=== PATIENT | female | born 1925 | race Caucasian/White ===

== ENCOUNTER 2017-01-18 08:15 | Emergency (ER) | payer OTHER ==
[~2017-01-18] VITALS: Ht 154.9 cm; Wt 75.1 kg
[2017-01-18 08:18] VITALS: TEMP 36.8; Ht 154.9 cm; Wt 75.1 kg
[2017-01-18] MEDS ORDERED: SODIUM CHLORIDE 0.9% 500ML 500 ML IV STA (09:04)
[2017-01-18 09:13] LABS: BASO % 0.3 %; BASO ABS # 0.02 K/uL (0-0.2); COMPLETE YES; HEMATOCRIT 36.9 % (37-47); IG% 0.2 %; LYMPH % 17.8 %; LYMPH ABS # 1.05 K/uL (1.2-3.4); MEAN CELL VOLUME 97.6 fL (80-100); MEAN CORPUSCULAR HGB CONC 32.8 g/dl (32-36); MEAN PLATELET VOLUME 10.4 fL (7.4-10.4); MONO % 6.4 %; NEUT % 73.3 %; PLATELET COUNT 218 K/uL (130-400); RED BLOOD COUNT 3.78 M/uL (4.2-5.4); WHITE BLOOD COUNT 5.91 K/uL (4.8-10.8)
[2017-01-18 09:26] LABS: BUN/CREATININE RATIO 17.8 (10-20); CREATININE 1.2 mg/dl (0.60-1.20); MAGNESIUM 2.2 mg/dl (1.8-2.4); POTASSIUM 3.6 mmol/L (3.5-5.1)
--- NOTE | 2017-01-18 09:26 | DIAGNOSTIC IMAGING REPORT ---
SINGLE VIEW CHEST CLINICAL HISTORY: Generalized weakness. FINDINGS: An AP, portable, upright chest radiograph is obtained. No prior studies are available for comparison at the time of dictation. The examination is degraded by portable technique and patient rotation. The heart is mildly enlarged and there is atherosclerotic calcification of the thoracic aorta. The pulmonary vasculature is noncongested. Nonspecific interstitial thickening is observed. The lungs and pleural spaces are clear. No pneumothorax is seen. The skeletal structures are osteopenic. The bony thorax is grossly intact. IMPRESSION: Cardiomegaly with no active disease in the chest. Electronically signed by: Guille Rubio M.D. 01/18/2017 9:24 AM Dictated Date/Time: 01/18/2017 9:24 AM
[2017-01-18 09:29] LABS: URINE APPEARANCE CLEAR (CLEAR); URINE BILIRUBIN NEG (NEG); URINE COLOR YELLOW; URINE EPITHELIAL CELL AUTO 20-30 /lpf (0-5); URINE NITRITE NEG (NEG); URINE PH 5.5 (4.5-7.5); URINE SPECIFIC GRAVITY 1.021 (1.000-1.030); UROBILINOGEN NEG (NEG); ZZUR CULT IF INDIC CLEAN CATCH NO
[2017-01-18 09:36] LABS: ALB/GLOB RATIO 0.9 (0.9-2); THYROID STIMULATING HORMONE 3.75 uIu/ml (0.300-4.500)
[2017-01-18 09:37] LABS: MANUAL MICROSCOPIC REQUIRED? NO; REVIEW REQ? NO
[2017-01-18] MEDS ORDERED: AMLO2.5T PO (09:38)
[2017-01-18] MEDS ORDERED: [UNRECOGNIZED DRUG - CODE] PO (09:38)
[2017-01-18] MEDS ORDERED: LABE100T23 PO (09:38)
[2017-01-18] MEDS ORDERED: ATOR-22 PO (09:38)
[2017-01-18] MEDS ORDERED: FRS/40 PO (09:38)
[2017-01-18] MEDS ORDERED: PRLSR20 PO (09:38)
[2017-01-18] MEDS ORDERED: CAND32TA2 PO (09:38)
[2017-01-18] MEDS ORDERED: POTA8CAP6 PO (09:38)
--- NOTE | 2017-01-18 10:07 | DIAGNOSTIC IMAGING REPORT ---
HEAD CT NONCONTRAST CT DOSE: 638.56 mGycm HISTORY: Mental status change weakness TECHNIQUE: Multiaxial CT images of the head were performed without the use of intravenous contrast. Comparison: None. Findings: The paranasal sinuses and mastoid air cells are clear. Considerable chronic small vessel change. Ventricular system is midline. No evidence for acute intracranial hemorrhage. Mild age-related atrophy. Impression: Chronic small vessel and age-related change. No acute intracranial abnormality. Electronically signed by: Yoni Paula M.D. 01/18/2017 10:06 AM Dictated Date/Time: 01/18/2017 10:05 AM
--- NOTE | 2017-01-18 11:23 | EMERGENCY ROOM VISIT NOTE ---
ED Visit Note First contact with patient: 08:50 89-year-old female with dizziness was fully evaluated by Celina Lee PA-C. Please see her note. I also independently evaluated the patient. I also spoke with family members including her physician daughter. The patient does not describe vertigo. She complains of unsteadiness on her feet but she did tolerate an ambulatory trial without much difficulty. Multiple labs were evaluated. I believe the patient is safe to return home but she was encouraged to return here if symptoms persist or worsen.
--- NOTE | 2017-01-18 11:46 | EMERGENCY ROOM VISIT NOTE ---
History First contact with patient: 08:50 Chief Complaint: WEAKNESS Stated Complaint: LIGHTHEADED, PRESYNCOPAL, WEAKNESS History of Present Illness The patient is a 89 year old female who presents to the Emergency Room with complaints of lightheadedness and weakness. [place] and states that yesterday, she woke up around 5 AM to go to the bathroom and felt "woozy." She states that she went back to bed and felt better, but when she woke up later she had similar symptoms. She reports the feeling of lightheadedness and feeling like she might pass out. She states she has had a mild pressure in her head and slight nausea. She has been slightly short of breath with walking. She had a similar episode of symptoms 1 week ago which lasted for less than 5 minutes. The patient has a history of hypertension but is otherwise very healthy. She reports generalized weakness, but denies any focal weakness. She denies any chest pain, fevers, neck pain, melena or hematochezia. She denies any nausea, vomiting or changes in bowel movements. Review of Systems A complete 10 point review of systems was reviewed with the patient with pertinent positives and negatives as per history of present illness. All else were negative. Social History Smoking Status: Never Smoker Current/Historical Medications Scheduled Amlodipine (Norvasc), 2.5 MG PO HS Atorvastatin (Lipitor), 20 MG PO HS Candesartan Cilexetil (Atacand), 32 MG PO HS Furosemide (Lasix), 40 MG PO DAILYBB Labetalol Hcl (Labetalol Hcl), 100 MG PO HS Omeprazole (Prilosec), 20 MG PO DAILY Potassium Chloride (Klor-Con Ext Rel), 8 MEQ PO DAILY Sucrose (Sucrose), 1 DOSE PO DAILY Allergies Coded Allergies: SHANNAN Inhibitors (Unverified Allergy, Intermediate, , 01/18/17) Ciprofloxacin (Unverified Allergy, Intermediate, DIARRHEA, 01/18/17) Iodine (Unverified Allergy, Intermediate, , 01/18/17) Metronidazole (Unverified Allergy, Intermediate, DIARRHEA, 01/18/17) Sulfa Antibiotics (Unverified Allergy, Intermediate, RASH, 01/18/17) Physical Exam Vital Signs Date Time Temp Pulse Resp B/P Pulse Ox O2 Delivery O2 Flow Rate FiO2 01/18/17 12:10 69 20 212/105 96 01/18/17 11:40 79 01/18/17 11:08 61 12 219/86 96 Room Air 69 217/114 70 236/93 01/18/17 09:35 56 10 221/78 97 Room Air 62 204/78 65 210/103 01/18/17 09:02 70 01/18/17 08:18 36.8 76 18 189/81 93 Room Air Physical Exam VITALS: Vitals are noted on the nurse's note and reviewed by myself. Vital signs stable. GENERAL: This is an 89-year-old female, in no acute distress, nondiaphoretic, well-developed well-nourished. SKIN: The skin was without rashes. EARS: External auditory canals clear, tympanic membranes pearly cervantes without erythema or effusion bilaterally. EYES: Pupils equal round and reactive to light and accommodation. Conjunctivae without injection, sclerae without icterus. Extraocular movements intact. MOUTH: Mucous membranes moist. Tonsils are not enlarged. Pharynx without erythema or exudate. NECK: Supple without nuchal rigidity. No lymphadenopathy. HEART: Regular rate and rhythm without murmurs gallops or rubs. LUNGS: Clear to auscultation bilaterally without wheezes, rales or rhonchi. MUSCULOSKELETAL: Full range of motion throughout. Strength 5/5 throughout. NEURO: Patient was alert and oriented to person place and time. Normal sensation to light and sharp touch. Deep tendon reflexes 2+ throughout. No focal neurological deficits. Normal finger to nose testing. Normal rapid alternating movements. Medical Decision & Procedures ER Provider Diagnostic Interpretation: SINGLE VIEW CHEST FINDINGS: An AP, portable, upright chest radiograph is obtained. No prior studies are available for comparison at the time of dictation. The examination is degraded by portable technique and patient rotation. The heart is mildly enlarged and there is atherosclerotic calcification of the thoracic aorta. The pulmonary vasculature is noncongested. Nonspecific interstitial thickening is observed. The lungs and pleural spaces are clear. No pneumothorax is seen. The skeletal structures are osteopenic. The bony thorax is grossly intact. IMPRESSION: Cardiomegaly with no active disease in the chest. HEAD CT NONCONTRAST Findings: The paranasal sinuses and mastoid air cells are clear. Considerable chronic small vessel change. Ventricular system is midline. No evidence for acute intracranial hemorrhage. Mild age-related atrophy. Impression: Chronic small vessel and age-related change. No acute intracranial abnormality. Laboratory Results 01/18/17 08:40 Red Blood Count 3.78, Mean Corpuscular Volume 97.6, Mean Corpuscular Hemoglobin 32.0, Mean Corpuscular Hemoglobin Concent 32.8, Mean Platelet Volume 10.4, Neutrophils (%) (Auto) 73.3, Lymphocytes (%) (Auto) 17.8, Monocytes (%) (Auto) 6.4, Eosinophils (%) (Auto) 2.0, Basophils (%) (Auto) 0.3, Neutrophils # (Auto) 4.33, Lymphocytes # (Auto) 1.05, Monocytes # (Auto) 0.38, Eosinophils # (Auto) 0.12, Basophils # (Auto) 0.02 01/18/17 08:40 Test 01/18/17 08:40 01/18/17 08:50 01/18/17 09:01 White Blood Count 5.91 K/uL (4.8-10.8) Red Blood Count 3.78 M/uL (4.2-5.4) Hemoglobin 12.1 g/dL (12.0-16.0) Hematocrit 36.9 % (37-47) Mean Corpuscular Volume 97.6 fL (80-100) Mean Corpuscular Hemoglobin 32.0 pg (25-34) Mean Corpuscular Hemoglobin Concent 32.8 g/dl (32-36) Platelet Count 218 K/uL (130-400) Mean Platelet Volume 10.4 fL (7.4-10.4) Neutrophils (%) (Auto) 73.3 % Lymphocytes (%) (Auto) 17.8 % Monocytes (%) (Auto) 6.4 % Eosinophils (%) (Auto) 2.0 % Basophils (%) (Auto) 0.3 % Neutrophils # (Auto) 4.33 K/uL (1.4-6.5) Lymphocytes # (Auto) 1.05 K/uL (1.2-3.4) Monocytes # (Auto) 0.38 K/uL (0.11-0.59) Eosinophils # (Auto) 0.12 K/uL (0-0.5) Basophils # (Auto) 0.02 K/uL (0-0.2) RDW Standard Deviation 47.8 fL (36.4-46.3) RDW Coefficient of Variation 13.4 % (11.5-14.5) Immature Granulocyte % (Auto) 0.2 % Immature Granulocyte # (Auto) 0.01 K/uL (0.00-0.02) Anion Gap 7.0 mmol/L (3-11) Est Creatinine Clear Calc Drug Dose 29.5 ml/min Estimated GFR () 46.4 Estimated GFR (Non- 40.0 BUN/Creatinine Ratio 17.8 (10-20) Calcium Level 9.0 mg/dl (8.5-10.1) Magnesium Level 2.2 mg/dl (1.8-2.4) Total Bilirubin 0.6 mg/dl (0.2-1) Aspartate Amino Transf (AST/SGOT) 14 U/L (15-37) Alanine Aminotransferase (ALT/SGPT) 16 U/L (12-78) Alkaline Phosphatase 73 U/L (45-117) Troponin I 0.030 ng/ml (0-0.045) Total Protein 6.8 gm/dl (6.4-8.2) Albumin 3.2 gm/dl (3.4-5.0) Globulin 3.6 gm/dl (2.5-4.0) Albumin/Globulin Ratio 0.9 (0.9-2) Thyroid Stimulating Hormone (TSH) 3.750 uIu/ml (0.300-4.500) Urine Color YELLOW Urine Appearance CLEAR (CLEAR) Urine pH 5.5 (4.5-7.5) Urine Specific [place] 1.021 (1.000-1.030) Urine Protein TRACE (NEG) Urine Glucose (UA) NEG (NEG) Urine Ketones TRACE (NEG) Urine Occult Blood NEG (NEG) Urine Nitrite NEG (NEG) Urine Bilirubin NEG (NEG) Urine Urobilinogen NEG (NEG) Urine Leukocyte Esterase TRACE (NEG) Urine WBC (Auto) 1-5 /hpf (0-5) Urine RBC (Auto) 0-4 /hpf (0-4) Urine Hyaline Casts (Auto) 5-10 /lpf (0-5) Urine Epithelial Cells (Auto) 20-30 /lpf (0-5) Urine Bacteria (Auto) NEG (NEG) Bedside Troponin I 0.000 ng/ml (0-0.045) Medications Administered Medications (Trade) Dose Ordered Sig/Bashir Route Start Time Stop Time Status Last Admin Dose Admin Sodium Chloride (Nss 500ml) 500 ml @ 999 mls/hr Q31M STAT IV 01/18/17 09:04 01/18/17 09:34 DC 01/18/17 09:15 999 MLS/HR ECG Rate (beats per minute): 69 Rhythm: normal sinus Findings: RBBB Comparison ECG Date: no prior available Medical Decision Differential diagnosis includes CVA, infection, electrolyte abnormality, anemia , cardiac disease, among others. The patient is an 89year-old female who presents today complaining of weakness and lightheadedness. Labs revealed no leukocytosis, anemia or concerning electrolyte abnormalities. Troponin is not elevated. Urinalysis was not suggestive of infection. EKG was interpreted by myself and shows a right bundle -branch block there is no previous EKG for comparison. Chest x-ray was unremarkable. CT of the head was unremarkable. Patient was hypertensive, but the daughter states that her baseline blood pressure is very high, despite medications. Additionally, the patient did not take her blood pressure medication this morning. I had a lengthy discussion with the patient and family regarding her symptoms. She has a normal neurological exam. I am unsure the exact cause of her symptoms. She may be mildly dehydrated. The patient's daughter is a physician and does feel comfortable if the patient is discharged to follow-up with her primary care provider or return here if symptoms worsen in the meantime. Patient was also independently evaluated by Dr. Sequeira, ED attending physician, who agreed with this assessment and treatment plan. Based on the patient's presentation and work up, I feel the patient is stable for outpatient treatment. The patient was educated to return to the emergency department for any worsening of their current condition or new/concerning symptoms. She will follow up with her primary care provider. Impression Primary Impression: Weakness Departure Information Dispostion Home / Self-Care Condition GOOD Referrals No Doctor, Assigned (PCP) Patient Instructions My [facility] [place] [facility] Additional Instructions Rest and drink plenty of fluids. Follow-up with the primary care provider within 48 hours. Take your blood pressure medication as prescribed. Return to the emergency department with persistent dizziness/weakness, worsening symptoms, severe headache or any other new/concerning symptoms.
[2017-01-18 12:10] VITALS: BP 212/105; PULSE 69; O2SAT 96
== END 2017-01-18 12:10 | disposition home or self-care (01) ==
LOC: C.EDB 08:19 → C.EDA 12:10
DX: R53.1 Weakness (principal); I10 Essential (primary) hypertension; Z79.899 Other long term (current) drug therapy